=== PATIENT | female | born 1950 | race Caucasian/White ===

== ENCOUNTER 2016-08-17 05:30 | Inpatient (IN) | payer OTHER, BC ==
[2016-08-10 09:22] LABS: HEMATOCRIT 41.3 % (37.0-47.0); HEMOGLOBIN 14.1 gm/dL (12.0-15.0); MCHC 34.1 g/dL (28.0-37.0); MCV 87.9 fL (80.0-100.0); RBC 4.69 mil/uL (4.20-5.00); RDW 13.9 % (10.5-14.5)
[2016-08-10 09:36] LABS: INR 1.1; PROTIME 10.9 Seconds (9.3-11.4)
[2016-08-10 09:37] LABS: URINE BILIRUBIN 1+ (Negative); URINE BLOOD NEGATIVE (Negative); URINE COLOR YELLOW; URINE GLUCOSE-RANDOM* NEGATIVE (Negative); URINE KETONES NEGATIVE (Negative); URINE LEUKOCYTES-REFLEX NEGATIVE (Negative); URINE PROTEIN (DIPSTICK) NEGATIVE (Negative); URINE SPECIFIC GRAVITY 1.025 (1.003-1.035)
[2016-08-10 09:39] LABS: ICTOTEST (BILI CONFIRMATORY) Negative (Negative)
[2016-08-10 09:40] LABS: ALBUMIN 3.7 g/dL (3.4-5.0); CALCIUM 9.4 mg/dL (8.5-10.1); CREATININE 0.9 mg/dL (0.6-1.0); POTASSIUM 3.9 mmol/L (3.5-5.1)
[~2016-08-17] VITALS: Ht 162.6 cm; Wt 104.8 kg
[2016-08-17] VITALS (8 sets, daily range): BP systolic 129–165; BP diastolic 71–97
--- NOTE | ~2016-08-17 | O ---
[facility] [place] [address] OPERATIVE REPORT Name: JEFF DRIVER Room #: 537-P ADM IN M.R.#: [id number] Admission: 08/17/16 Attend Phys: Rajeev Pete MD Discharge: Date of : 52 Report #: [id number] THIS REPORT FOR: //name// CC: Margy Pete DATE OF SERVICE: 08/17/2016 PREOPERATIVE DIAGNOSES: 1. Right knee osteoarthritis. 2. Morbid obesity with, body mass index of 40. POSTOPERATIVE DIAGNOSES: 1. Right knee osteoarthritis. 2. Morbid obesity with, body mass index of 40. PROCEDURE: Right total knee arthroplasty. SURGEON: Rajeev Pete MD. ADMISSION SPECIALIST: Ines Wilks PA-C. ANESTHESIA: LMA, with an adductor canal block. IMPLANTS: Fonseca [employer] Nephew, size 6 Legion cobalt chrome posterior stabilized femur, size 4 tibia, size 10 polyethylene, and size 35 patella. TOURNIQUET TIME: 66 minutes. ESTIMATED BLOOD LOSS: 100 mL. COMPLICATIONS: None. SPECIMENS: None. CONDITION UPON LEAVING THE OPERATING ROOM: Stable. INDICATIONS FOR PROCEDURE: The patient is a 66-year-old female with severe right knee osteoarthritis. She had failed conservative treatment for this. After discussion with her, she elected for right total knee arthroplasty. DESCRIPTION OF PROCEDURE: Risks, benefits, alternatives, complications were discussed in detail with the patient including but not limited to risk of anesthesia, risk of damage to nerves, arteries, blood vessels, risk for infection, bleeding, risk for continued knee pain, and need for reoperation. An informed consent was obtained from the patient. Right knee was appropriately [facility] [address] [address] OPERATIVE REPORT Name: JEFF DRIVER Room #: 537-P ADM IN M.R.#: [id number] Admission: 08/17/16 Attend Phys: Rajeev Pete MD Discharge: Date of : 52 Report #: [id number] marked in the preoperative holding area. Adductor canal block was placed by anesthesia. IV clindamycin was given for preoperative antibiotics. She was brought to the operating room, and placed in the supine position on the operating room table. General endotracheal anesthesia was induced without complication. Tourniquet was placed on the right thigh. Right lower extremity was prepped and draped in the normal sterile fashion. Timeout was performed, properly identifying the patient and procedure, as well as instrumentation and implants. All in the operating room were in agreement. Right lower extremity was exsanguinated, tourniquet was inflated. Tourniquet time was 66 minutes. Standard midline approach to the knee was made with #10 blade through the skin. Dissection was taken down sharply to the fascia, and deep flaps were developed medially and laterally. Fresh #10 blade was used to make a medial parapatellar arthrotomy, and the knee was inspected, there was extensive tricompartmental osteoarthritic change of the knee. The anterior horns of the menisci were removed sharply. ACL and PCL were removed sharply. Drill was used to gain access to the canal of the femur, and distal femoral cutting block was pinned in place. Distal femoral cut was made, and the femur was sized and found to be of size 6. A size 6, 4-in-1 cutting block was placed. Anterior, posterior, and chamfer cuts were made. After this, the knee was hyperflexed. Attention was turned to the tibia. Intramedullary alignment to the tibia was used and resection was based off the lateral plateau. Tibial resection was made. Posterior osteophytes were removed from the femur, and the flexion and extension gaps were checked and found to be tight medially in extension, and a limited medial release was performed using the pie crust technique. This balanced the knee well on flexion and extension. The tibia was sized and found to be of size 4. Size 4 tibial trial was placed, size 6 femoral trial was placed, and the box cut was made. The post was placed, and a size 9 and a size 10 polyethylene were trialed. The size 10 seemed to have a better fit, with good balance medially and laterally. A 9 mm was taken off the posterior surface of the patella and a size 35 patellar trial was placed. Knee was taken through range of motion, found to be stable, found to have good balance in flexion and extension. Trial components were removed. Bony ends were thoroughly irrigated with normal saline. Final size 4 tibia, size 6 Legion cobalt chrome posterior stabilized femur, and a size 35 patella were cemented in to place using standard cementation techniques. While the cement cured, a periarticular injection consisting of morphine, ropivacaine, epinephrine, and Toradol was placed around the knee joint. After the cement cured, the tourniquet was deflated. Hemostasis was obtained with Bovie cautery. Final size 10 polyethylene was placed. Knee was thoroughly irrigated with normal saline. The fascia was closed with 0 Vicryl. Skin was closed with 2-0 Vicryl, 3-0 Monocryl, and Dermabond. An Aquacel dressing was applied. The [address] [address] OPERATIVE REPORT Name: JEFF DRIVER Room #: 537-P ADM IN M.R.#: [id number] Admission: 08/17/16 Attend Phys: Rajeev Pete MD Discharge: Date of : 52 Report #: [id number] patient tolerated this procedure well, and went to the recovery room under the care of anesthesia postoperatively. <ELECTRONICALLY SIGNED> By: Rajeev Pete MD 08/18/16 0733 1508 1753 Rajeev Pete MD /nt
--- NOTE | ~2016-08-17 | EKG ---
[place] [address] [facility] [place] [address] ELECTROCARDIOGRAM REPORT Name: JEFF DRIVER Room #: PRE IN M.R.#: [id number] Admission: Attend Phys: Rajeev Pete MD Discharge: Date of : 52 Report #: [id number] THIS REPORT FOR: //name// [facility] Test Date: 2016-08-10 Test Time: 09:04:09 Pat Name: JEFF DRIVER Department: Room: Gender: F Ghost Writer: Leo FLOOD : 1950 Requested By: Rajeev Pete Order Number: [id number] MD: Yvon Freed Measurements Intervals [place] Rate: 57 P: 41 DE: 200 QRS: -3 QRSD: 91 T: 45 QT: 434 QTc: 423 Interpretive Statements Sinus rhythm Baseline wander in lead(s) II,III,aVF Compared to ECG 06/05/2000 02:40:37 Poor R-wave progression no longer present Electronically Signed On 08-10-2016 15:07:38 CDT by Yvon Freed [email or web address] <ELECTRONICALLY SIGNED> By: Yvon Freed MD 08/10/16 1507 0904 0904 Yvon Freed MD /[email or web address]
[~2016-08-17 05:30] MED LIST: COREG25 MG PO; HYDROCHLOROTHIA25 M2 PO; MULTIVITAMINS1 EAC7 PO; OCUVITE TABLET1 EAC1 PO; ZYRTEC10 M5 PO
[2016-08-18 05:56] VITALS: BP 138/67
[2016-08-18 06:58] LABS: HEMATOCRIT 35.6 % (37.0-47.0); HEMOGLOBIN 12.2 gm/dL (12.0-15.0); MCH 30.1 pg (26.0-34.0); MCHC 34.3 g/dL (28.0-37.0); MCV 87.9 fL (80.0-100.0); RBC 4.04 mil/uL (4.20-5.00); RDW 13.9 % (10.5-14.5); WBC 7.4 thou/uL (4.0-11.0)
[2016-08-18 07:15] VITALS: BP 122/52
[2016-08-18] MEDS ORDERED: CVS BUFFERED A325 MG PO (15:08)
[2016-08-18] MEDS ORDERED: NEURONTIN 300300 M1 PO (15:08)
[2016-08-18] MEDS ORDERED: PERCOCET PO (15:08)
[2016-08-18] MEDS ORDERED: MS CONTIN15 MG PO (15:09)
[2016-08-18 15:39] VITALS: BP 122/52
[2016-08-18 15:43] VITALS: BP 122/52
== END 2016-08-18 17:40 | disposition home or self-care (01) | DRG 470 ==
LOC: PRE 05:30 → 5S 05:41 → TBA 05:41 → PRE 08:15 → 5S 16:15
PROVIDERS: Orthopaedic Surgery
PROC: 0SRC0J9 Replacement of Right Knee Joint with Synthetic Substitute, Cemented, Open Approach (ICD-10-PCS; principal; 2016-08-17)
DX: M17.11 Unilateral primary osteoarthritis, right knee (principal); Z68.41 Body mass index [BMI] 40.0-44.9, adult; E66.01 Morbid (severe) obesity due to excess calories; I10 Essential (primary) hypertension; Z88.0 Allergy status to penicillin; Z88.1 Allergy status to other antibiotic agents; Z88.2 Allergy status to sulfonamides; Z88.6 Allergy status to analgesic agent; Z88.8 Allergy status to other drugs, medicaments and biological substances; Z85.9 Personal history of malignant neoplasm, unspecified; Z90.49 Acquired absence of other specified parts of digestive tract; Z82.49 Family history of ischemic heart disease and other diseases of the circulatory system; Z82.61 Family history of arthritis
CPT/HCPCS: 10785; 50010; 50101; 50415; 50612; 50954; 51130; 51225; 51771; 52256; 53000; 53078; 53364; 54118; 56527; 56528; 57095; 62110; 62900; 64042; 64043; 70005